=== PATIENT | female | born 1950 | race Caucasian/White ===

== ENCOUNTER 2017-07-29 12:08 | Emergency (ER) | payer OTHER ==
[~2017-07-29] VITALS: Ht 157.5 cm; Wt 79.4 kg
[2017-07-29 13:35] LABS: ABSOLUTE NEUTROPHILS 7.9 thou/uL (1.4-8.2); BASOPHILS 0.6 % (0.0-2.0); EOSINOPHILS 1.1 % (0.0-3.0); HEMATOCRIT 35.6 % (37.0-47.0); HEMOGLOBIN 11.4 gm/dL (12.0-15.0); LYMPHOCYTES 17.7 % (24.0-44.0); MCH 24.6 pg (26.0-34.0); MCHC 32.1 g/dL (28.0-37.0); MCV 76.4 fL (80.0-100.0); MONOCYTES 4.9 % (1.0-8.0); PLATELET COUNT 367 thou/uL (150-400); POLYS 75.7 % (36.0-66.0); RBC 4.65 mil/uL (4.20-5.00); WBC 10.4 thou/uL (4.0-11.0)
[2017-07-29 13:43] LABS: CALCIUM 9.4 mg/dL (8.5-10.1); CREATININE 0.8 mg/dL (0.6-1.0); POTASSIUM 3.6 mmol/L (3.5-5.1)
[2017-07-29] MEDS ORDERED: CLEOCIN HCL150 MG PO (14:16)
[2017-07-29] MEDS ORDERED: SENNA8.6 MG PO (14:16)
[2017-07-29] MEDS ORDERED: HYDROCODONE-AP1 EAC6 PO (14:16)
[2017-07-29 14:33] VITALS: BP 152/73
== END 2017-07-29 14:38 | disposition home or self-care (01) ==
LOC: ER 12:08
PROVIDERS: Physician Assistant
DX: L03.115 Cellulitis of right lower limb (principal); J44.9 Chronic obstructive pulmonary disease, unspecified; I10 Essential (primary) hypertension; F17.210 Nicotine dependence, cigarettes, uncomplicated; Z88.5 Allergy status to narcotic agent